=== PATIENT | female | born 1975 | race Hispanic/Latino ===

== ENCOUNTER 2018-12-31 14:54 | Outpatient (CLI) | payer BC ==
--- NOTE | 2018-12-31 17:14 | ULT ---
THYROID ULTRASOUND: 12/31/18 INDICATION: E03.9 and E89.0. FINDINGS: The right thyroid lobe measured 3.6 x 1.0 x 0.85 cm. Left thyroid lobe measures 2.7 x 0.8 x 0.9 cm. T he thyroid isthmus measures 0.26 cm. No focal thyroid lesion is identified. IMPRESSION: No focal thyroid lesion seen. POS: [facility]
== END 2018-12-31 14:55 | disposition home or self-care (01) ==
LOC: BICULT 14:54
PROVIDERS: ATTEND Internal Medicine Endocrinology, Diabetes & Metabolism
DX: E89.0 Postprocedural hypothyroidism (principal); E05.90 Thyrotoxicosis, unspecified without thyrotoxic crisis or storm
CPT/HCPCS: 76536